=== PATIENT | male | born 1940 | race Caucasian/White ===

== ENCOUNTER 2017-12-03 10:40 | Outpatient (CLI) | payer MEDICARE, OTHER | END 2017-12-03 10:41 | disposition home or self-care (01) | LOC: BICCT 10:40 | PROVIDERS: ATTEND Nurse Practitioner Family | DX: M48.062 Spinal stenosis, lumbar region with neurogenic claudication (principal); M47.896 Other spondylosis, lumbar region; M99.83 Other biomechanical lesions of lumbar region; Z98.890 Other specified postprocedural states | CPT/HCPCS: 72131 ==

== ENCOUNTER 2018-03-03 11:08 | Outpatient (CLI) | payer MEDICARE, OTHER ==
--- NOTE | 2018-03-03 13:09 | RAD ---
RIGHT KNEE FOUR VIEWS: History: Knee pain. Comparison: None. FINDINGS: There is mild medial compartment joint space narrowing and small osteophyte formation. No acute displ aced fracture or malalignment. Mild vascular calcification. IMPRESSION: Mild medial compartment joint space narrowing. POS: [facility]
--- NOTE | 2018-03-03 14:13 | RAD ---
LEFT KNEE FOUR VIEWS: History: Left knee pain. Comparison: None. FINDINGS: There is a 9 mm osteochondral defect involving the medial femoral condyle. There are small marginal o steophytes affecting all major compartments of the left knee. No acute fracture or subluxation is haleigh dent. There are vascular calcifications within the posterior soft tissues. IMPRESSION: Mild osteoarthrosis left knee. POS: [facility]
== END 2018-03-03 11:09 | disposition home or self-care (01) ==
LOC: RAD 11:08
PROVIDERS: ATTEND Nurse Practitioner Family
DX: M25.561 Pain in right knee (principal); M25.562 Pain in left knee; M17.0 Bilateral primary osteoarthritis of knee

== ENCOUNTER 2018-10-22 14:16 | Outpatient (CLI) | payer MEDICARE, OTHER ==
--- NOTE | 2018-10-22 15:07 | CT ---
CT lumbar spine. HISTORY: Back pain. Axial images are obtained with coronal and sagittal reconstructions. Images demonstrate a right renal cortical cyst or cystic lesion. There is a bone stimulator over the posterior aspect of the L4 level. Surgical posterior fusion hardware seen at the L3-L4 and L5 levels. L5-S1 vacuum disc changes seen. No significant evidence of neural foraminal narrowing seen. IMPRESSION: L3, L4 and L5 lumbar spine fusion hardware in place. Transcribed Date/Time: 10/22/2018 3:16 PM
== END 2018-10-22 14:17 | disposition home or self-care (01) ==
LOC: BICCT 14:16
PROVIDERS: ATTEND Anesthesiology Pain Medicine
DX: M54.16 Radiculopathy, lumbar region (principal); Z98.1 Arthrodesis status
CPT/HCPCS: 72131

== ENCOUNTER 2019-06-16 14:59 | Outpatient (CLI) | payer MEDICARE, OTHER ==
--- NOTE | 2019-06-16 15:46 | CT ---
CT lumbar spine without contrast: HISTORY: Lumbar radicular pain. A states low back pain with associated bilateral lower extremity pain. History of prior back surgeries. COMPARISON: 10/22/2018 FINDINGS: There is a stable hypodense cystic lesion seen in the medial aspect midportion right kidney stable in size measuring 5.4 cm. There is also a stable increased density exophytic lesion superior pole right kidney measuring 1.5 cm. Vascular calcifications are again seen in the abdominal aorta and invo lving the iliac arteries. Colonic diverticulosis is present involving the visualized sigmoid colon. Postoperative changes lumbar spine are again noted with bipedicular screws and posterior rods transfi pipo the L3-L5 levels. No hardware complication is seen. A neural stimulator device overlies the lower lumbar spine at the L3-4 level. No fracture is seen. There is a stable small lytic lesion withi n the left iliac bone which has overall nonaggressive appearance. L1-2: No significant central canal or neural foraminal narrowing. L2-3: There is a mild disc osteophyte complex with facet hypertrophic changes. There is minimal centr al canal narrowing. Neural foramina are patent. L3-4: Facet degenerative changes are seen at this level greater on the left which does result in mild to moderate left-sided neural foraminal narrowing. The right neural foramen is patent. No significant narrowing of the central spinal canal. L4-5: Laminectomy defect is present at this level. Soft tissue density seen posterior to the central canal which could be related to scarring. There are facet hypertrophic changes at this level which does result in mild right-sided neural foraminal narrowing. The left neural foramen is patent. No sig nificant mass effect is appreciated on the thecal sac. L5-S1: Disc degenerative changes are present at this level with severe loss of intervertebral disc he ight and vacuum phenomenon. There is a broad-based disc osteophyte complex present at this level with mild facet degenerative changes. Central spinal canal is patent. [id number] bilateral neur al foraminal narrowing is noted primarily related to bony encroachment due to facet hypertrophic changes and posterior osteophyte formation. IMPRESSION: 1. Postoperative and degenerative changes of the lumbar spine with findings not significantly changed when compared to the prior study in 2019. 2. 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 3. Colonic diverticulosis.
== END 2019-06-16 15:00 | disposition home or self-care (01) ==
LOC: CT 14:59
PROVIDERS: ATTEND Anesthesiology Pain Medicine
DX: M47.26 Other spondylosis with radiculopathy, lumbar region (principal); K57.30 Diverticulosis of large intestine without perforation or abscess without bleeding; N28.1 Cyst of kidney, acquired; Z98.890 Other specified postprocedural states
CPT/HCPCS: 72131

== ENCOUNTER 2021-03-02 21:04 | Inpatient (IN) | payer MEDICARE, OTHER ==
[~2021-03-02 21:04] MED LIST: Iopamidol-370 76% 500 ML 1 ML ONE
[2021-03-02] MEDS ORDERED: Dexamethasone 10 MG/ML VIAL ONE (22:21)
[2021-03-02 22:36] LABS: ALT (SGPT) 39 U/L (8-55); AST (SGOT) 18 U/L (5-34); Albumin 3.8 g/dL (3.4-4.8); Alkaline Phosphatase 98 U/L (40-110); Anion Gap 14 mmol/L (10-20); BUN (Urea Nitrogen) 21 mg/dL (8.4-25.7); Bilirubin, Total 0.9 mg/dL (0.2-1.2); Calc. Creatinine Clearance 0 mL/min (70-130); Carbon Dioxide 28 mmol/L (23-31); Chloride 101 mmol/L (98-107); Globulin 3.1 g/dL (2.4-3.5); Glucose 130 mg/dL (83-110); Potassium 4.3 mmol/L (3.5-5.1); Protein, Total 6.9 g/dL (5.8-8.1); Sodium 139 mmol/L (136-145)
[2021-03-02 22:49] LABS: Mean Corpuscular HGB CONC 33.2 g/dL (32.0-36.0); Mean Corpuscular Hemoglobin 31.2 pg (27.0-31.0); Mean Corpuscular Volume 94.1 fL (78.0-98.0); Mean Platelet Volume 7.5 fL (7.4-10.4); Platelet Count 174 thou/uL (130-400); RBC Distribution Width 13.9 % (11.5-14.5); Red Blood Cell (RBC) Count 5.11 mill/uL (4.70-6.10); White Blood Cell (WBC) Count 20.6 thou/uL (4.8-10.8)
[2021-03-02 23:19] LABS: Band 6 % (5-11); Lymphocytes 7 % (21-51); MDiff Complete? YES; Monocytes 8 % (0-10); Neutrophil 79 % (42-75)
[2021-03-03 00:05] LABS: SARS-CoV-2 NAA Rapid Test Not Detected (NotDetected)
[2021-03-03 01:14] LABS: Lactic Acid 1.8 mmol/L (0.5-2.2)
[2021-03-03 01:21] LABS: Troponin I 0.033 ng/mL (< 0.028)
[2021-03-03] MEDS ORDERED: Ondansetron PF 4 MG/2 ML Vial IVP PRN (01:32)
[2021-03-03] MEDS ORDERED: Acetaminophen 325 MG TAB PO PRN (01:32)
[2021-03-03 01:47] VITALS: BMI 29.0
[2021-03-03 04:41] LABS: #Lymphocytes 0.8 thou/uL (1.20-3.40); #Monocytes 0.2 thou/uL (0.11-0.59); #Neutrophils 14.4 thou/uL (1.40-6.50); %Basophils 0.2 % (0.0-1.0); %Eosinophils 0.2 % (0.0-10.0); %Lymphocytes 5.1 % (21.0-51.0); %Monocytes 1.1 % (0.0-10.0); %Neutrophils 93.4 % (42.0-75.0); Hemoglobin 15.5 g/dL (14.0-18.0); Mean Corpuscular HGB CONC 32.8 g/dL (32.0-36.0); Mean Corpuscular Volume 94.5 fL (78.0-98.0); Mean Platelet Volume 7.6 fL (7.4-10.4); Platelet Count 168 thou/uL (130-400); RBC Distribution Width 13.8 % (11.5-14.5); White Blood Cell (WBC) Count 15.4 thou/uL (4.8-10.8)
[2021-03-03 04:59] LABS: Anion Gap 13 mmol/L (10-20); BUN (Urea Nitrogen) 23 mg/dL (8.4-25.7); Calc. Creatinine Clearance 82 mL/min (70-130); Calcium 10.1 mg/dL (7.8-10.44); Carbon Dioxide 33 mmol/L (23-31); Chloride 100 mmol/L (98-107); Glucose 133 mg/dL (83-110); Potassium 4.5 mmol/L (3.5-5.1); Sodium 141 mmol/L (136-145)
[2021-03-03 05:00] LABS: Troponin I 0.035 ng/mL (< 0.028)
[2021-03-03] MEDS: methylPREDNISolone Sod Succ 40 MG VIAL IVP SCH ×3 (06:07→21:57)
[2021-03-03] MEDS ORDERED: FLU VACC QS2021-22(65YR UP)/PF 240 MCG/0.7 ML SYRINGE IM ONE (09:00)
[2021-03-03] MEDS: Enoxaparin Sodium 40 MG/0.4 ML SYRINGE SC SCH (09:10)
[2021-03-03] MEDS: Famotidine 20 MG TAB PO SCH ×2 (11:16→21:53)
[2021-03-03] MEDS ORDERED: Albuterol Sulfate 2.5 mg/3 ml Neb NEB PRN (16:34)
[2021-03-03 19:21] LABS: Legionella Urinary Ag Negative (Negative); Strep pneumo Urine Ag NEGATIVE (NEGATIVE)
[2021-03-03] MEDS: Atorvastatin Calcium 40 MG TAB PO SCH (21:48)
[2021-03-03] MEDS: busPIRone HCl 10 MG TAB PO SCH (21:50)
[2021-03-03] MEDS: Carbidopa/Levodopa 25-100 mg Tablet PO SCH (21:52)
[2021-03-03] MEDS: Carvedilol 3.125 MG TAB PO SCH (21:52)
[2021-03-03] MEDS: Gabapentin 300 MG CAP PO SCH (21:53)
[2021-03-03] MEDS: Donepezil HCl 10 MG TAB PO SCH (21:53)
[2021-03-03] MEDS: Fenofibrate Nanocrystallized 145 MG TAB PO SCH (21:54)
[2021-03-04] MEDS: methylPREDNISolone Sod Succ 40 MG VIAL IVP SCH ×3 (05:14→22:21)
[2021-03-04 06:27] LABS: #Lymphocytes 1.3 thou/uL (1.20-3.40); #Monocytes 0.8 thou/uL (0.11-0.59); #Neutrophils 14.7 thou/uL (1.40-6.50); %Basophils 0.2 % (0.0-1.0); %Eosinophils 0.2 % (0.0-10.0); %Lymphocytes 7.7 % (21.0-51.0); %Monocytes 4.6 % (0.0-10.0); %Neutrophils 87.4 % (42.0-75.0); Mean Corpuscular HGB CONC 33.7 g/dL (32.0-36.0); Mean Corpuscular Hemoglobin 31.1 pg (27.0-31.0); Mean Corpuscular Volume 92.5 fL (78.0-98.0); Mean Platelet Volume 7.4 fL (7.4-10.4); Platelet Count 205 thou/uL (130-400); RBC Distribution Width 13.6 % (11.5-14.5); White Blood Cell (WBC) Count 16.8 thou/uL (4.8-10.8)
[2021-03-04 06:45] LABS: Anion Gap 14 mmol/L (10-20); BUN (Urea Nitrogen) 17 mg/dL (8.4-25.7); Calc. Creatinine Clearance 92 mL/min (70-130); Calcium 10.3 mg/dL (7.8-10.44); Carbon Dioxide 29 mmol/L (23-31); Chloride 101 mmol/L (98-107); Glucose 145 mg/dL (83-110); Potassium 4.6 mmol/L (3.5-5.1); Sodium 139 mmol/L (136-145)
[2021-03-04] MEDS ORDERED: Aspirin 81 mg Enteric Coated Tablet PO SCH (09:00)
[2021-03-04] MEDS: Enoxaparin Sodium 40 MG/0.4 ML SYRINGE SC SCH (11:09)
[2021-03-04] MEDS: Gabapentin 300 MG CAP PO SCH ×3 (11:10→22:17)
[2021-03-04] MEDS: Carbidopa/Levodopa 25-100 mg Tablet PO SCH ×3 (11:10→22:00)
[2021-03-04] MEDS: busPIRone HCl 10 MG TAB PO SCH ×2 (11:11→21:57)
[2021-03-04] MEDS: Famotidine 20 MG TAB PO SCH ×2 (11:12→22:06)
[2021-03-04] MEDS: Carvedilol 3.125 MG TAB PO SCH ×2 (11:12→22:01)
[2021-03-04] MEDS: Aspirin Chewable 81 MG TAB PO SCH (11:13)
[2021-03-04] MEDS: Atorvastatin Calcium 40 MG TAB PO SCH (21:53)
[2021-03-04] MEDS: Donepezil HCl 10 MG TAB PO SCH (22:02)
[2021-03-04] MEDS: Fenofibrate Nanocrystallized 145 MG TAB PO SCH (22:06)
[2021-03-05] MEDS: HYDROcodone/Acetaminophen 10/325 mg Tablet PO PRN ×3 (00:31→21:41)
[2021-03-05] MEDS: methylPREDNISolone Sod Succ 40 MG VIAL IVP SCH (06:15)
[2021-03-05 06:28] LABS: #Monocytes 1.4 thou/uL (0.11-0.59); #Neutrophils 16.7 thou/uL (1.40-6.50); %Basophils 0.2 % (0.0-1.0); %Eosinophils 0.1 % (0.0-10.0); %Lymphocytes 5.1 % (21.0-51.0); %Monocytes 7.1 % (0.0-10.0); %Neutrophils 87.6 % (42.0-75.0); Hemoglobin 14.5 g/dL (14.0-18.0); Mean Corpuscular HGB CONC 33.4 g/dL (32.0-36.0); Mean Corpuscular Volume 92.7 fL (78.0-98.0); Mean Platelet Volume 7.3 fL (7.4-10.4); Platelet Count 207 thou/uL (130-400); RBC Distribution Width 13.6 % (11.5-14.5); Red Blood Cell (RBC) Count 4.69 mill/uL (4.70-6.10); White Blood Cell (WBC) Count 19.1 thou/uL (4.8-10.8)
[2021-03-05 06:47] LABS: Anion Gap 14 mmol/L (10-20); BUN (Urea Nitrogen) 25 mg/dL (8.4-25.7); Calc. Creatinine Clearance 101 mL/min (70-130); Calcium 10.2 mg/dL (7.8-10.44); Carbon Dioxide 28 mmol/L (23-31); Chloride 101 mmol/L (98-107); Glucose 122 mg/dL (83-110); Potassium 4.3 mmol/L (3.5-5.1); Sodium 139 mmol/L (136-145)
[2021-03-05] MEDS: Enoxaparin Sodium 40 MG/0.4 ML SYRINGE SC SCH (08:17)
[2021-03-05] MEDS: Aspirin Chewable 81 MG TAB PO SCH (08:18)
[2021-03-05] MEDS: Carbidopa/Levodopa 25-100 mg Tablet PO SCH ×3 (08:18→21:17)
[2021-03-05] MEDS: Gabapentin 300 MG CAP PO SCH ×3 (08:19→21:17)
[2021-03-05] MEDS: Carvedilol 3.125 MG TAB PO SCH ×2 (08:20→21:09)
[2021-03-05] MEDS: Famotidine 20 MG TAB PO SCH ×2 (08:20→21:17)
[2021-03-05] MEDS: busPIRone HCl 10 MG TAB PO SCH ×2 (08:20→21:09)
[2021-03-05] MEDS: Atorvastatin Calcium 40 MG TAB PO SCH (21:08)
[2021-03-05] MEDS: Fenofibrate Nanocrystallized 145 MG TAB PO SCH (21:17)
[2021-03-05] MEDS: Donepezil HCl 10 MG TAB PO SCH (21:19)
[2021-03-06] MEDS: Gabapentin 300 MG CAP PO SCH ×2 (08:58→16:19)
[2021-03-06] MEDS: Famotidine 20 MG TAB PO SCH (08:59)
[2021-03-06] MEDS: busPIRone HCl 10 MG TAB PO SCH (08:59)
[2021-03-06] MEDS: Aspirin Chewable 81 MG TAB PO SCH (08:59)
[2021-03-06] MEDS: Carvedilol 3.125 MG TAB PO SCH (08:59)
[2021-03-06] MEDS: Carbidopa/Levodopa 25-100 mg Tablet PO SCH ×2 (09:00→16:19)
[2021-03-06] MEDS: Enoxaparin Sodium 40 MG/0.4 ML SYRINGE SC SCH (09:01)
[2021-03-06 11:06] LABS: #Lymphocytes 1.4 thou/uL (1.20-3.40); #Monocytes 1.5 thou/uL (0.11-0.59); #Neutrophils 13.6 thou/uL (1.40-6.50); %Basophils 0.2 % (0.0-1.0); %Eosinophils 0.1 % (0.0-10.0); %Lymphocytes 8.2 % (21.0-51.0); %Monocytes 9.2 % (0.0-10.0); %Neutrophils 82.2 % (42.0-75.0); Hemoglobin 14.8 g/dL (14.0-18.0); Mean Corpuscular HGB CONC 33.3 g/dL (32.0-36.0); Mean Corpuscular Hemoglobin 30.7 pg (27.0-31.0); Mean Corpuscular Volume 92.2 fL (78.0-98.0); Mean Platelet Volume 7.2 fL (7.4-10.4); Platelet Count 180 thou/uL (130-400); RBC Distribution Width 13.6 % (11.5-14.5); Red Blood Cell (RBC) Count 4.82 mill/uL (4.70-6.10); White Blood Cell (WBC) Count 16.6 thou/uL (4.8-10.8)
[2021-03-06 11:26] LABS: Anion Gap 9 mmol/L (10-20); BUN (Urea Nitrogen) 24 mg/dL (8.4-25.7); Calc. Creatinine Clearance 93 mL/min (70-130); Calcium 9.9 mg/dL (7.8-10.44); Carbon Dioxide 34 mmol/L (23-31); Chloride 99 mmol/L (98-107); Glucose 110 mg/dL (83-110); Potassium 3.9 mmol/L (3.5-5.1); Sodium 138 mmol/L (136-145)
[2021-03-06 16:11] VITALS: BP 125/68; TEMP 97.6
== END 2021-03-06 17:15 | disposition home health service (06) | DRG 177 ==
LOC: ERS 21:04 → 3SE 23:20
PROVIDERS: ADMIT Internal Medicine; ATTEND Internal Medicine
DX: J69.0 Pneumonitis due to inhalation of food and vomit (principal); J96.01 Acute respiratory failure with hypoxia; J44.1 Chronic obstructive pulmonary disease with (acute) exacerbation; Z20.822 Contact with and (suspected) exposure to COVID-19; I25.10 Atherosclerotic heart disease of native coronary artery without angina pectoris; I11.0 Hypertensive heart disease with heart failure; I50.9 Heart failure, unspecified; R13.12 Dysphagia, oropharyngeal phase; G20 Parkinson's disease; M54.9 Dorsalgia, unspecified; G89.29 Other chronic pain; F02.80 Dementia in other diseases classified elsewhere, unspecified severity, without behavioral disturbance, psychotic disturbance, mood disturbance, and anxiety; E78.00 Pure hypercholesterolemia, unspecified; Z88.0 Allergy status to penicillin; Z88.8 Allergy status to other drugs, medicaments and biological substances; Z90.49 Acquired absence of other specified parts of digestive tract; Z98.890 Other specified postprocedural states; Z95.1 Presence of aortocoronary bypass graft; Z79.51 Long term (current) use of inhaled steroids; Z79.82 Long term (current) use of aspirin; Z79.899 Other long term (current) drug therapy; Z87.891 Personal history of nicotine dependence; Z95.0 Presence of cardiac pacemaker
CPT/HCPCS: 36415; 71045; 71275; 80048; 80053; 83605; 83880; 84484; 85025; 87040; 87070; 87077; 87149; 87205; 87449; 87899; 90471; 90662; 93005; 94640; 96365; 96375; G0008; J1100; J1650; J1956; J2920; J7620; Q9967; U0002